=== PATIENT | female | born 2000 ===

== ENCOUNTER 2019-01-12 18:21 | Inpatient (IN) | payer OTHER ==
[~2019-01-12] VITALS: Ht 172.7 cm; Wt 52.3 kg
[2019-01-12 18:50] LABS: BASOPHILS % (AUTO) 0.7 % (0.0-2.0); EOSINOPHILS % (AUTO) 0.8 % (1.0-6.0); HEMATOCRIT 40.5 % (36-46); HEMOGLOBIN 13.9 g/dL (12.0-16.0); LYMPHOCYTES # (AUTO) 1.4 K/uL (1.0-4.8); LYMPHOCYTES % (AUTO) 26.1 % (22.0-44.0); MEAN CORPUSCULAR HEMOGLOBIN 31.5 pg (26.0-34.0); MEAN CORPUSCULAR HGB CONC 34.3 G/dL (31.0-37.0); MEAN CORPUSCULAR VOLUME 92 fL (80-100); MONOCYTES # (AUTO) 0.6 K/uL (0.1-1.0); MONOCYTES % (AUTO) 10.5 % (2.0-9.0); NEUTROPHILS # (AUTO) 3.4 K/uL (1.8-7.7); NEUTROPHILS % (AUTO) 61.9 % (40.0-70.0); PLATELET COUNT (AUTO) 298 K/uL (150-450); RED BLOOD CELL COUNT(AUTO) 4.41 MIL/uL (4.00-5.20); RED CELL DISTRIBUTION WIDTH 13.7 % (11.5-14.5)
[2019-01-12 19:05] LABS: ANION GAP 13 mmol/L (8-16); CALCIUM, TOTAL 8.9 mg/dL (8.8-10.5); CARBON DIOXIDE 22 mmol/L (22-29); CHLORIDE 101 mmol/L (98-107); CREATININE 0.66 mg/dL (0.60-1.30); GLOMERULAR FILTR. RATE CALC > 60 mL/min (>60); GLUCOSE,RANDOM 70 mg/dL (70-110); POTASSIUM 3.9 mmol/L (3.5-5.1); SODIUM SERUM 136 mmol/L (136-145); UREA NITROGEN, BLOOD 11 mg/dL (7-18)
[2019-01-12 19:13] LABS: ALANINE AMINOTRANSFERASE 24 U/L (12-78); ALBUMIN 3.9 g/dL (3.4-5.0); ALKALINE PHOSPHATASE 63 U/L (46-116); ASPARTATE AMINOTRANSFERASE 19 U/L (15-37); BILIRUBIN,TOTAL 0.7 mg/dL (0.1-1.0); TOTAL PROTEIN, SERUM 7.8 g/dL (6.4-8.2)
[2019-01-12] MEDS ORDERED: CloNIDine HCL 0.1 MG TABLET PO PRN (20:15)
[2019-01-12] MEDS ORDERED: MAG HYDROX/AL HYDROX/SIMETH ES 30 ML SUSPENSION UDCUP PO PRN (20:15)
[2019-01-12] MEDS ORDERED: MAGNESIUM HYDROXIDE SUSPENSION 30 ML UDCUP PO PRN (20:15)
[2019-01-12] MEDS ORDERED: ONDANSETRON HCL 4 MG TABLET PO PRN (20:15)
[2019-01-12] MEDS ORDERED: PETROLATUM,WHITE 28 GM JELLY TP PRN (20:15)
[2019-01-12] MEDS ORDERED: LOPERAMIDE HCL 2 MG CAPSULE PO PRN (20:15)
[2019-01-12] MEDS ORDERED: NICOTINE 14 MG/24 HOUR PATCH TD PRN (20:15)
[2019-01-12] MEDS ORDERED: DOCUSATE SODIUM 100 MG CAPSULE PO PRN (20:15)
[2019-01-12] MEDS ORDERED: IBUPROFEN 400 MG TABLET PO PRN (20:15)
[2019-01-12] MEDS ORDERED: ALBUTEROL SULFATE HFA 90 MCG/PUFF 8 GM INHALER IH PRN (20:15)
[2019-01-12] MEDS ORDERED: GuaiFENesin/D-METHORPHAN [SUGAR-FREE] 200-20MG/10 ML SYRUP UDCUP PO PRN (20:15)
[2019-01-12] MEDS ORDERED: ACETAMINOPHEN 325 MG TABLET PO PRN (20:15)
[2019-01-12 21:00] VITALS: BP 118/97
[2019-01-12 23:48] VITALS: BP 106/71
[2019-01-13 05:22] VITALS: BP 127/83
[2019-01-13 07:16] LABS: BASOPHILS % (AUTO) 0.5 % (0.0-2.0); EOSINOPHILS % (AUTO) 3.2 % (1.0-6.0); HEMATOCRIT 40.8 % (36-46); HEMOGLOBIN 14.2 g/dL (12.0-16.0); LYMPHOCYTES # (AUTO) 1.4 K/uL (1.0-4.8); LYMPHOCYTES % (AUTO) 27.4 % (22.0-44.0); MEAN CORPUSCULAR HEMOGLOBIN 31.8 pg (26.0-34.0); MEAN CORPUSCULAR HGB CONC 34.7 G/dL (31.0-37.0); MEAN CORPUSCULAR VOLUME 92 fL (80-100); MONOCYTES # (AUTO) 0.5 K/uL (0.1-1.0); MONOCYTES % (AUTO) 9.3 % (2.0-9.0); NEUTROPHILS % (AUTO) 59.6 % (40.0-70.0); PLATELET COUNT (AUTO) 306 K/uL (150-450); RED BLOOD CELL COUNT(AUTO) 4.46 MIL/uL (4.00-5.20); RED CELL DISTRIBUTION WIDTH 13.6 % (11.5-14.5)
[2019-01-13 07:21] LABS: HEMOGLOBIN A1C 4.6 % (4.5-6.2)
[2019-01-13 07:41] LABS: ALANINE AMINOTRANSFERASE 23 U/L (12-78); ALBUMIN 3.6 g/dL (3.4-5.0); ALKALINE PHOSPHATASE 60 U/L (46-116); ANION GAP 16 mmol/L (8-16); ASPARTATE AMINOTRANSFERASE 17 U/L (15-37); BILIRUBIN,TOTAL 0.7 mg/dL (0.1-1.0); CALCIUM, TOTAL 8.6 mg/dL (8.8-10.5); CARBON DIOXIDE 21 mmol/L (22-29); CHLORIDE 102 mmol/L (98-107); CHOL/HDL RATIO 2.2 (3.9-5.7); CHOLESTEROL 134 mg/dL (131-200); CREATININE 0.64 mg/dL (0.60-1.30); GLOMERULAR FILTR. RATE CALC > 60 mL/min (>60); GLUCOSE,RANDOM 69 mg/dL (70-110); HDL CHOLESTEROL 61 mg/dL (40-60); LDL CHOL (CALC.) 60 mg/dL (0-130); POTASSIUM 3.8 mmol/L (3.5-5.1); SODIUM SERUM 139 mmol/L (136-145); THYROID STIMULATING HORMONE 0.11 uIU/mL (0.36-3.74); TOTAL PROTEIN, SERUM 7.5 g/dL (6.4-8.2); TRIGLYCERIDES 63 mg/dL (15-150); UREA NITROGEN, BLOOD 12 mg/dL (7-18)
[2019-01-13 07:48] VITALS: BP 120/72
[2019-01-13] MEDS ORDERED: SODIUM CHLORIDE 3% 15 ML NEB SOLUTION NEB ONE ×3 (08:24→21:11)
[2019-01-13 11:41] VITALS: BP 119/80
[2019-01-13 16:44] VITALS: BP 126/63
[2019-01-13 19:28] VITALS: BP 106/59
[2019-01-14] VITALS (7 sets, daily range): BP systolic 98–148; BP diastolic 52–85
[2019-01-14 09:22] LABS: INFLUENZA TYPE A NEGATIVE FOR TYPE A (NEGATIVE); INFLUENZA TYPE B NEGATIVE FOR TYPE B (NEGATIVE)
[2019-01-14] MEDS: DOXYCYCLINE HYCLATE 100 MG CAPSULE PO SCH ×2 (18:53→20:14)
[2019-01-15 04:59] VITALS: BP 119/77
[2019-01-15 06:07] LABS: HIV 1-2 SCREEN 4TH GEN W/RFLX Non Reactive (Non Reactive)
[2019-01-15 07:40] VITALS: BP 100/62
[2019-01-15] MEDS: DOXYCYCLINE HYCLATE 100 MG CAPSULE PO SCH ×2 (08:33→20:39)
[2019-01-15 11:55] VITALS: BP_SYST 115; BP_SYST 121; BP_DIAS 64; BP_DIAS 69
[2019-01-15 15:49] VITALS: BP 111/66
[2019-01-15] MEDS: CIPROFLOXACIN HCL 0.2%/HYDROCORT 1% 10 ML OTIC SUSPENSION AS SCH ×2 (17:17→20:39)
[2019-01-15] MEDS: MetroNIDAZOLE 500 MG TABLET PO SCH ×2 (17:18→20:38)
[2019-01-15] MEDS: ESCITALOPRAM OXALATE 10 MG TABLET PO SCH (18:27)
[2019-01-15] MEDS ORDERED: SODIUM CHLORIDE 3% 15 ML NEB SOLUTION NEB ONE (20:09)
[2019-01-15 20:17] VITALS: BP 106/70
[2019-01-15 21:44] LABS: QUANTIFERON+, Nil Value 0.05 IU/mL; QUANTIFERON+,Mitogen Value >10.00 IU/mL; QUANTIFERON+,TB1 Antigen Value 0.04 IU/mL; QUANTIFERON, TB GOLD PLUS Negative (Negative)
[2019-01-15 23:09] VITALS: BP 119/73
[2019-01-16 05:45] VITALS: BP 100/66
[2019-01-16 07:33] VITALS: BP 115/66
[2019-01-16] MEDS: MetroNIDAZOLE 500 MG TABLET PO SCH ×3 (08:39→20:03)
[2019-01-16] MEDS: CIPROFLOXACIN HCL 0.2%/HYDROCORT 1% 10 ML OTIC SUSPENSION AS SCH ×2 (08:39→20:03)
[2019-01-16] MEDS: ESCITALOPRAM OXALATE 10 MG TABLET PO SCH (08:39)
[2019-01-16] MEDS: DOXYCYCLINE HYCLATE 100 MG CAPSULE PO SCH ×2 (08:39→20:02)
[2019-01-16 11:47] VITALS: BP 123/76
[2019-01-16] MEDS ORDERED: SODIUM CHLORIDE 3% 15 ML NEB SOLUTION NEB ONE (14:12)
[2019-01-16 16:30] VITALS: BP 123/83
[2019-01-16 20:03] VITALS: BP 116/74
[2019-01-16] MEDS: QUEtiapine FUMARATE 100 MG TABLET PO SCH (20:03)
[2019-01-16] MEDS ORDERED: QUEtiapine FUMARATE 100 MG TABLET PO SCH (21:00)
[2019-01-17 00:23] VITALS: BP 99/66
[2019-01-17 07:45] VITALS: BP 99/60
[2019-01-17] MEDS: CIPROFLOXACIN HCL 0.2%/HYDROCORT 1% 10 ML OTIC SUSPENSION AS SCH ×2 (08:45→20:27)
[2019-01-17] MEDS: ESCITALOPRAM OXALATE 10 MG TABLET PO SCH (08:45)
[2019-01-17] MEDS: DOXYCYCLINE HYCLATE 100 MG CAPSULE PO SCH ×2 (08:45→20:27)
[2019-01-17] MEDS: MetroNIDAZOLE 500 MG TABLET PO SCH ×3 (08:46→20:27)
[2019-01-17 11:13] VITALS: BP 98/66
[2019-01-17 13:07] LABS: LEGIONELLA PNEUMO AG URINE Negative (Negative); ORGANISM ID Not indicated.; S PNEUMO SOURCE Urine; STREP PNEUMONIAE AG URINE Negative (Negative); STREP.PNEUMO BODY FLUID CULT. Not Indicated
[2019-01-17 15:21] VITALS: BP 114/65
[2019-01-17 19:36] VITALS: BP 107/66
[2019-01-17] MEDS: QUEtiapine FUMARATE 100 MG TABLET PO SCH (20:27)
[2019-01-17 23:22] VITALS: BP 103/61
[2019-01-18 04:45] VITALS: BP 95/64
[2019-01-18 07:21] LABS: BASOPHILS % (AUTO) 1.2 % (0.0-2.0); EOSINOPHILS % (AUTO) 3.2 % (1.0-6.0); HEMATOCRIT 40.8 % (36-46); HEMOGLOBIN 14.1 g/dL (12.0-16.0); LYMPHOCYTES # (AUTO) 2.5 K/uL (1.0-4.8); LYMPHOCYTES % (AUTO) 50.5 % (22.0-44.0); MEAN CORPUSCULAR HEMOGLOBIN 31.1 pg (26.0-34.0); MEAN CORPUSCULAR HGB CONC 34.4 G/dL (31.0-37.0); MEAN CORPUSCULAR VOLUME 91 fL (80-100); MONOCYTES # (AUTO) 0.4 K/uL (0.1-1.0); MONOCYTES % (AUTO) 8.3 % (2.0-9.0); NEUTROPHILS # (AUTO) 1.8 K/uL (1.8-7.7); NEUTROPHILS % (AUTO) 36.8 % (40.0-70.0); PLATELET COUNT (AUTO) 401 K/uL (150-450); RED BLOOD CELL COUNT(AUTO) 4.51 MIL/uL (4.00-5.20); RED CELL DISTRIBUTION WIDTH 13.5 % (11.5-14.5)
[2019-01-18 07:39] LABS: ANION GAP 7 mmol/L (8-16); CALCIUM, TOTAL 8.4 mg/dL (8.8-10.5); CARBON DIOXIDE 27 mmol/L (22-29); CHLORIDE 105 mmol/L (98-107); CREATININE 0.83 mg/dL (0.60-1.30); GLOMERULAR FILTR. RATE CALC > 60 mL/min (>60); GLUCOSE,RANDOM 91 mg/dL (70-110); POTASSIUM 4.1 mmol/L (3.5-5.1); SODIUM SERUM 139 mmol/L (136-145); UREA NITROGEN, BLOOD 17 mg/dL (7-18)
[2019-01-18 07:41] VITALS: BP 106/61
[2019-01-18] MEDS: CIPROFLOXACIN HCL 0.2%/HYDROCORT 1% 10 ML OTIC SUSPENSION AS SCH ×2 (08:32→20:14)
[2019-01-18] MEDS: DOXYCYCLINE HYCLATE 100 MG CAPSULE PO SCH ×2 (08:32→20:14)
[2019-01-18] MEDS: LACTOBAC ACID/BULG/BIFID/THERM TABLET PO SCH (08:33)
[2019-01-18] MEDS: ESCITALOPRAM OXALATE 10 MG TABLET PO SCH (08:33)
[2019-01-18] MEDS: MetroNIDAZOLE 500 MG TABLET PO SCH ×3 (08:33→20:14)
[2019-01-18 11:26] VITALS: BP 104/58
[2019-01-18 15:35] VITALS: BP 105/64
[2019-01-18 19:30] VITALS: BP 103/62
[2019-01-18] MEDS: QUEtiapine FUMARATE 100 MG TABLET PO SCH (20:14)
[2019-01-19 00:08] VITALS: BP 100/55
[2019-01-19 04:42] VITALS: BP 103/63
[2019-01-19 07:31] VITALS: BP 102/59
[2019-01-19] MEDS: LACTOBAC ACID/BULG/BIFID/THERM TABLET PO SCH (08:27)
[2019-01-19] MEDS: DOXYCYCLINE HYCLATE 100 MG CAPSULE PO SCH ×2 (08:27→20:28)
[2019-01-19] MEDS: MetroNIDAZOLE 500 MG TABLET PO SCH ×3 (08:27→20:27)
[2019-01-19] MEDS: ESCITALOPRAM OXALATE 10 MG TABLET PO SCH (08:27)
[2019-01-19] MEDS: CIPROFLOXACIN HCL 0.2%/HYDROCORT 1% 10 ML OTIC SUSPENSION AS SCH ×2 (08:32→20:28)
[2019-01-19 12:41] VITALS: BP 106/64
[2019-01-19 16:03] VITALS: BP 110/68
[2019-01-19 20:01] VITALS: BP 111/62
[2019-01-19] MEDS: QUEtiapine FUMARATE 100 MG TABLET PO SCH (20:27)
[2019-01-20 02:22] VITALS: BP 105/54
[2019-01-20 05:36] VITALS: BP 106/57
[2019-01-20 07:58] VITALS: BP 91/58
[2019-01-20] MEDS: DOXYCYCLINE HYCLATE 100 MG CAPSULE PO SCH ×2 (09:13→20:38)
[2019-01-20] MEDS: ESCITALOPRAM OXALATE 10 MG TABLET PO SCH (09:13)
[2019-01-20] MEDS: MetroNIDAZOLE 500 MG TABLET PO SCH ×3 (09:13→20:38)
[2019-01-20] MEDS: LACTOBAC ACID/BULG/BIFID/THERM TABLET PO SCH (09:13)
[2019-01-20] MEDS: CIPROFLOXACIN HCL 0.2%/HYDROCORT 1% 10 ML OTIC SUSPENSION AS SCH ×2 (09:14→20:39)
[2019-01-20 12:11] VITALS: BP 100/63
[2019-01-20 15:54] VITALS: BP 122/66
[2019-01-20 20:15] VITALS: BP 107/78
[2019-01-20] MEDS: QUEtiapine FUMARATE 100 MG TABLET PO SCH (20:39)
[2019-01-21 00:17] VITALS: BP 101/64
[2019-01-21 05:15] VITALS: BP 102/56
[2019-01-21 08:01] LABS: BASOPHILS % (AUTO) 1.5 % (0.0-2.0); EOSINOPHILS % (AUTO) 3.2 % (1.0-6.0); HEMATOCRIT 39.3 % (36-46); HEMOGLOBIN 13.8 g/dL (12.0-16.0); LYMPHOCYTES # (AUTO) 1.9 K/uL (1.0-4.8); LYMPHOCYTES % (AUTO) 42.1 % (22.0-44.0); MEAN CORPUSCULAR HEMOGLOBIN 31.5 pg (26.0-34.0); MEAN CORPUSCULAR VOLUME 90 fL (80-100); MONOCYTES # (AUTO) 0.6 K/uL (0.1-1.0); MONOCYTES % (AUTO) 13.5 % (2.0-9.0); NEUTROPHILS # (AUTO) 1.8 K/uL (1.8-7.7); NEUTROPHILS % (AUTO) 39.7 % (40.0-70.0); PLATELET COUNT (AUTO) 358 K/uL (150-450); RED BLOOD CELL COUNT(AUTO) 4.37 MIL/uL (4.00-5.20); RED CELL DISTRIBUTION WIDTH 13.4 % (11.5-14.5)
[2019-01-21 08:13] LABS: ANION GAP 5 mmol/L (8-16); CALCIUM, TOTAL 8.5 mg/dL (8.8-10.5); CARBON DIOXIDE 28 mmol/L (22-29); CHLORIDE 106 mmol/L (98-107); CREATININE 0.77 mg/dL (0.60-1.30); GLOMERULAR FILTR. RATE CALC > 60 mL/min (>60); GLUCOSE,RANDOM 84 mg/dL (70-110); SODIUM SERUM 139 mmol/L (136-145); UREA NITROGEN, BLOOD 14 mg/dL (7-18)
[2019-01-21] MEDS: CIPROFLOXACIN HCL 0.2%/HYDROCORT 1% 10 ML OTIC SUSPENSION AS SCH ×2 (08:27→20:43)
[2019-01-21] MEDS: DOXYCYCLINE HYCLATE 100 MG CAPSULE PO SCH ×2 (08:28→20:41)
[2019-01-21] MEDS: ESCITALOPRAM OXALATE 10 MG TABLET PO SCH (08:28)
[2019-01-21] MEDS: MetroNIDAZOLE 500 MG TABLET PO SCH ×3 (08:28→20:41)
[2019-01-21] MEDS: LACTOBAC ACID/BULG/BIFID/THERM TABLET PO SCH (08:28)
[2019-01-21 08:29] VITALS: BP 100/56
[2019-01-21 12:02] VITALS: BP 102/53
[2019-01-21 16:36] VITALS: BP 110/71
[2019-01-21 20:01] VITALS: BP 113/63
[2019-01-21] MEDS: QUEtiapine FUMARATE 100 MG TABLET PO SCH (20:41)
[2019-01-22 00:23] VITALS: BP 100/56
[2019-01-22 04:20] VITALS: BP 94/53
[2019-01-22 08:52] VITALS: BP 105/60
[2019-01-22] MEDS: DOXYCYCLINE HYCLATE 100 MG CAPSULE PO SCH ×2 (08:53→20:13)
[2019-01-22] MEDS: MetroNIDAZOLE 500 MG TABLET PO SCH ×3 (08:53→20:13)
[2019-01-22] MEDS: ESCITALOPRAM OXALATE 10 MG TABLET PO SCH (08:54)
[2019-01-22] MEDS: LACTOBAC ACID/BULG/BIFID/THERM TABLET PO SCH (08:54)
[2019-01-22] MEDS: CIPROFLOXACIN HCL 0.2%/HYDROCORT 1% 10 ML OTIC SUSPENSION AS SCH ×2 (08:56→20:14)
[2019-01-22 12:15] VITALS: BP 128/69
[2019-01-22] MEDS ORDERED: ESCI10TA PO (15:03)
[2019-01-22] MEDS ORDERED: QUET100T PO (15:04)
[2019-01-22 15:42] VITALS: BP 110/66
[2019-01-22] MEDS: QUEtiapine FUMARATE 100 MG TABLET PO SCH (20:14)
[2019-01-22 20:15] VITALS: BP 120/67
[2019-01-23 00:46] VITALS: BP 93/56
[2019-01-23 04:05] VITALS: BP 87/58
[2019-01-23] MEDS: DOXYCYCLINE HYCLATE 100 MG CAPSULE PO SCH (08:27)
[2019-01-23] MEDS: MetroNIDAZOLE 500 MG TABLET PO SCH (08:27)
[2019-01-23] MEDS: ESCITALOPRAM OXALATE 10 MG TABLET PO SCH (08:27)
[2019-01-23] MEDS: LACTOBAC ACID/BULG/BIFID/THERM TABLET PO SCH (08:27)
[2019-01-23] MEDS: CIPROFLOXACIN HCL 0.2%/HYDROCORT 1% 10 ML OTIC SUSPENSION AS SCH (08:28)
[2019-01-23 08:57] VITALS: BP 111/66
== END 2019-01-23 10:30 | DRG 204 ==
LOC: EMS 18:22 → 6S 19:30
PROVIDERS: ADMIT Internal Medicine; ATTEND Internal Medicine
DX: R91.8 Other nonspecific abnormal finding of lung field (principal); F11.23 Opioid dependence with withdrawal; F33.2 Major depressive disorder, recurrent severe without psychotic features; R45.851 Suicidal ideations; F17.210 Nicotine dependence, cigarettes, uncomplicated; Z59.0 Homelessness; Z79.899 Other long term (current) drug therapy
CPT/HCPCS: 71250; 83036; 84145; 84443; 86480; 86592; 86706; 86738; 86803; 87015; 87206; 87340; 87389; 87449; 87491; 87556; 87591; 87804; 87899; 94640; Q0162